=== PATIENT | female | born 1985 | race American Indian/Alaskan Native ===

== ENCOUNTER 2018-06-23 19:20 | Emergency (ER) | payer MEDICAID ==
[2018-06-23 19:21] VITALS: BMI 34.9
[2018-06-23] MEDS ORDERED: Sodium Chloride 0.9% 1,000 ML IV ONE (20:49)
[2018-06-23 21:21] LABS: BASO # 0.1 K/uL (0.0-0.2); BASO % 1.1 % (0.0-2.0); EOS # 0.3 K/uL (0.0-0.7); EOS % 3.8 % (0.0-4.0); HEMOGLOBIN 11.1 g/dL (11.0-16.0); LYMPH # 2.6 K/uL (1.0-4.3); LYMPH % 30.5 % (20.0-40.0); MEAN CELL VOLUME 84.5 fL (81.0-99.0); MEAN CORPUSCULAR HEMOGLOBIN 26.8 pg (27.0-31.0); MEAN CORPUSCULAR HGB CONC 31.7 g/dL (33.0-37.0); MEAN PLATELET VOLUME 8.5 fL (7.2-11.7); MONO # 0.7 K/uL (0.0-0.8); MONO % 8.7 % (0.0-10.0); NEUT # 4.7 K/uL (1.8-7.0); NEUT % 55.9 % (50.0-75.0); RBC 4.16 Mil/uL (3.80-5.20); RED CELL DISTRIBUTION WIDTH 14.4 % (11.5-14.5); WHITE BLOOD COUNT 8.4 K/uL (4.8-10.8)
--- NOTE | 2018-06-23 21:29 | C.PDOC ---
History Of Present Illness CC "vaginal bleeding" HPI: Patient is a 32 year old female who presents for heavy vaginal bleeding since 06/11/18 with blood clots associated with crampy abdominal pressure like pain. She states she has had this problem since she gave to her triplets in 2011. She was switched from oral contraceptive to Depo shot recently to help with the bleeding. Her last Depo shot was in March 2018 and was due to get her next Depo shot on 06/28/18. She states she feels weak all over and has been falling asleep at her job. She has had to receive blood transfusion last January for anemia. She denies fevers, chills, headache, lightheaded, chest pain, shortness of breath, palpitations, abdominal pain, nausea, vomiting, diarrhea ,constipation, leg pain. PMH: anemia PSH: C section for triplets in 2011 Home meds: Vitamin B12 Allergies: NKDA Social hx: denies tobacco use, (+) intermittent etoh use, denies drug use. <Mary Pablo - Last Filed: 06/26/18 18:32> <Mary Pablo - Last Filed: 06/26/18 18:32> <Serge Marlow - Last Filed: 06/27/18 14:26> Time Seen by Provider: 06/23/18 20:42 Chief Complaint (Nursing): Female Genitourinary Past Medical History Vital Signs: Last Vital Signs Temp 98.8 F 06/23/18 19:47 Pulse 86 06/23/18 19:47 Resp 20 06/23/18 19:47 BP 135/83 06/23/18 19:47 Pulse Ox 99 06/23/18 19:47 - Medical History PMH: Anemia, Migraine Denies: Chronic Kidney Disease Family History: States: Unknown Family Hx - Social History Hx Alcohol Use: No Hx Substance Use: No <Mary Pablo - Last Filed: 06/26/18 18:32> Vital Signs: Last Vital Signs Temp 99.1 F 06/24/18 00:02 Pulse 83 06/24/18 00:02 Resp 16 06/24/18 00:02 BP 116/78 06/24/18 00:02 Pulse Ox 99 06/26/18 18:34 <Serge Marlow - Last Filed: 06/27/18 14:26> Physical Exam - Physical Exam Appears: Other (Patient appears tired. ) Head: Atraumatic, Normacephalic Eye(s): bilateral: PERRL, EOMI, Conjunctiva Pale Ear(s): Left: Normal Oral Mucosa: Moist Neck: Normal, No Midline Cervical Tenderness, No Paracervical Tenderness Cardiovascular: Rhythm Regular, No Friction Rub, No Murmur, No JVD Respiratory: Normal Breath Sounds, No Rales, No Rhonchi, No Stridor, No Wheezing Gastrointestinal/Abdominal: Bowel Sounds, Soft, Tenderness (mild lower abdominal tenderness ), No Organomegaly, No Mass, No Distention, No Rebound, No Hernia Extremity: No Pedal Edema, No Calf Tenderness, No Capillary Refill Pulses: Left Dorsalis Pedis: Normal, Right Dorsalis Pedis: Normal Neurological/Psych: Oriented x3, Normal Speech, Normal Cognition <Mary Pablo - Last Filed: 06/26/18 18:32> ED Course And Treatment - Laboratory Results Result Diagrams: 06/23/18 21:17 06/23/18 21:17 O2 Sat by Pulse Oximetry: 99 <Mary Pablo - Last Filed: 06/26/18 18:32> - Laboratory Results Result Diagrams: 06/23/18 21:17 06/23/18 21:17 Lab Results: PT 12.1 SECONDS (9.7-12.2) 06/23/18 21: INR 1.1 06/23/18 21:17 APTT 32 SECONDS (21-34) 06/23/18 21:17 Total Bilirubin 0.4 mg/dL (0.2-1.3) 06/23/18 21:17 AST 21 U/L (14-36) 06/23/18 21:17 ALT 22 U/L (9-52) 06/23/18 21:17 Alkaline Phosphatase 91 U/L (38-126) 06/23/18 21:17 Total Protein 7.9 g/dL (6.3-8.3) 06/23/18 21:17 Albumin 4.4 g/dL (3.5-5.0) 06/23/18 21:17 Globulin 3.6 gm/dL (2.2-3.9) 06/23/18 21:17 Albumin/Globulin Ratio 1.2 (1.0-2.1) 06/23/18 21:17 Urine Color Yellow (YELLOW) 06/23/18 20:48 Urine Clarity Hazy (Clear) 06/23/18 20:48 Urine pH 5.0 (5.0-8.0) 06/23/18 20:48 Ur Specific Bryan 1.023 (1.003-1.030) 06/23/18 20:48 Urine Protein 1+ mg/dL (NEGATIVE) H 06/23/18 20:48 Urine Glucose (UA) Normal mg/dL (Normal) 06/23/18 20:48 Urine Ketones Negative mg/dL (NEGATIVE) 06/23/18 20:48 Urine Blood 3+ (NEGATIVE) H 06/23/18 20:48 Urine Nitrate Negative (NEGATIVE) 06/23/18 20:48 Urine Bilirubin Negative (NEGATIVE) 06/23/18 20:48 Urine Urobilinogen Normal mg/dL (0.2-1.0) 06/23/18 20:48 Ur Leukocyte Esterase Neg Rashawn/uL (Negative) 06/23/18 20:48 Urine WBC (Auto) 3 /hpf (0-5) 06/23/18 20:48 Urine RBC (Auto) 1043 /hpf (0-3) H 06/23/18 20:48 Ur Squamous Epith Cells 3 /hpf (0-5) 06/23/18 20:48 Urine HCG, Qual Negative (NEGATIVE) 06/23/18 20:48 Urine HCG, Qual Negative (NEGATIVE) 06/23/18 20:48 <Serge Marlow - Last Filed: 06/27/18 14:26> Medical Decision Making Medical Decision Making: CBC, CMP, Beta HCG ordered. Hb noted to be 11.1. NS IV fluids ordered. <Mary Pablo - Last Filed: 06/26/18 18:32> Medical Decision Making: pt seen with [facility]. heavy vb as per pt. h/h stable vitals stable. ucg neg. stable for outpt managment. return precautions advised. <Serge Marlow - Last Filed: 06/27/18 14:26> Disposition - Disposition Disposition Time: 00:00 <Mary Pablo - Last Filed: 06/26/18 18:32> <Serge Marlow - Last Filed: 06/27/18 14:26> - Disposition Referrals: [facility] [Outside] [facility] [Outside] [facility] [employer] [facility] [Outside] [facility] [Outside] Disposition: HOME/ ROUTINE Condition: STABLE Additional Instructions: return to er with worsening symptoms or concerns. Instructions: Uterine Fibroids Forms: [employer] ([place]) - Clinical Impression Clinical Impression: Uterine fibroid
[2018-06-23 21:34] LABS: INR 1.1; PROTHROMBIN TIME 12.1 SECONDS (9.7-12.2)
[2018-06-23 21:35] LABS: ALB/GLOB RATIO 1.2 (1.0-2.1); ALBUMIN 4.4 g/dL (3.5-5.0); ALT/SGPT 22 U/L (9-52); AST/SGOT 21 U/L (14-36); BLOOD UREA NITROGEN 12 mg/dL (7-17); CALCIUM 9.4 mg/dl (8.6-10.4); GFR NON-AFRICAN AMERICAN > 60
[2018-06-23 22:48] LABS: HCG,QUALITATIVE URINE NEGATIVE (NEGATIVE)
[2018-06-23 23:01] LABS: SQUAMOUS EPITHIAL 3 /hpf (0-5); URINE BILIRUBIN NEGATIVE (NEGATIVE); URINE BLOOD 3+ (NEGATIVE); URINE CLARITY Hazy (Clear); URINE COLOR Yellow (YELLOW); URINE GLUCOSE (UA) NORMAL (Normal); URINE LEUKOCYTE ESTERASE NEG Leu/uL (Negative); URINE PROTEIN 1+ mg/dL (NEGATIVE); URINE UROBILINOGEN NORMAL mg/dL (0.2-1.0)
[2018-06-24 00:03] VITALS: BP 116/78; PULSE 83; RESP 16; TEMP 99.1
--- NOTE | 2018-06-24 09:40 | US ---
Date of service: 06/23/2018 HISTORY: vb COMPARISON: None available. TECHNIQUE: Transvaginal FINDINGS: UTERUS: Measures 15.8 x 7.9 x 10.4 cm. Normal in anteverted size and appearance. A mid uterine body large mass-compatible with a large heterogeneous fibroid central in position measuring 7.9 x 6.3 x 7.7 cm in size is noted. Portions of the endometrium difficult to identified. Conceivably a very large heterogeneous central endometrial sessile type polyp cannot be excluded. However is much larger than typically seen for the follow-up. A heterogeneous fibroid is bbelieved most likely-however the endometrial stripe complex appears splayed and thinned out surrounding this mass. ENDOMETRIUM: The only portion of the endometrium that is well visualized is along the inferior aspect of the uterus here measures approximately 0.9 mm in diameter. CERVIX: No cervical abnormality identified. RIGHT OVARY: Measures 2.3 x 1.9 x 3.4 cm. No solid mass. Normal flow. LEFT OVARY: Measures 5.0 x 2.8 x 4.4 cm. No solid mass. Normal flow. 3.1 x 2.4 x 3.2 cm cyst FREE FLUID: No significant free fluid noted. OTHER FINDINGS: Intrauterine masses are not excluded. IMPRESSION: Central uterine mass-the origin high-sub mucosal and/or endometrial difficult to discern. A large heterogeneous uterine fibroid is believed more likely-and inner myometrial to submucosal extension filling the uterine cavity is compatible with this. [employer] follow-up recommended Left ovarian benign-appearing cyst. Concordant results (preliminary interpretation) provided by ivan.
[2018-06-26 18:34] VITALS: O2SAT 99
== END 2018-06-24 00:03 | disposition home or self-care (01) ==
LOC: C.ER 19:20
DX: D25.9 Leiomyoma of uterus, unspecified (principal)
CPT/HCPCS: 76856; 80053; 81001; 84703; 85025; 85610; 85730; 96360; 99284; J7030